=== PATIENT | male | born 1980 | race Hispanic/Latino ===

== ENCOUNTER 2016-09-17 22:36 | Emergency (ER) | payer BC ==
[~2016-09-17] VITALS: Ht 177.8 cm; Wt 86.7 kg
[2016-09-18] MEDS ORDERED: NORCO 5/3251 TABLET PO (00:20)
[2016-09-18 00:36] VITALS: BP 116/72
== END 2016-09-18 00:38 | disposition home or self-care (01) ==
LOC: RME 22:36 → EME 22:36 → RME 09-18 00:38
PROC: 2W3EX1Z Immobilization of Right Hand using Splint (ICD-10-PCS; principal; 2016-09-17)
DX: S63.260A Dislocation of metacarpophalangeal joint of right index finger, initial encounter (principal); Y93.66 Activity, soccer; W51.XXXA Accidental striking against or bumped into by another person, initial encounter
CPT/HCPCS: 73130; 99281; 99283

== ENCOUNTER 2016-09-18 16:16 | Day surgery (SDC) | payer BC ==
[~2016-09-18] VITALS: Ht 177.8 cm; Wt 88.0 kg
[~2016-09-18 16:16] MED LIST: NORCO 5/3251 TABLET PO
[2016-09-18 16:52] VITALS: BP 136/90
[2016-09-19 00:45] VITALS: BP 132/82
== END 2016-09-19 00:03 | disposition home or self-care (01) ==
LOC: SDC 16:16 → 2SOUTH 21:25 → 2EAST 22:43
PROC: 0PST04Z Reposition Right Finger Phalanx with Internal Fixation Device, Open Approach (ICD-10-PCS; principal; 2016-09-18)
DX: S63.260A Dislocation of metacarpophalangeal joint of right index finger, initial encounter (principal); Z88.0 Allergy status to penicillin; Y93.66 Activity, soccer; W03.XXXA Other fall on same level due to collision with another person, initial encounter
CPT/HCPCS: 73140; 76000; G0378; J0330; J1170; J2405; J3010; J7120; S0020